=== PATIENT | male | born 1960 | race Hispanic/Latino ===

== ENCOUNTER 2024-04-20 16:42 | Emergency (ER) | payer MEDICARE ==
[2024-04-20] MEDS ORDERED: Acetaminophen 325 MG TAB ONE (17:24)
[2024-04-20 17:30] LABS: Bilirubin Neg (Negative); Blood, Urine 50 (Negative); Clarity Clear (Clear); Glucose, Urine (Dipstick) Normal (Negative); Ketone, Urine Negative (Negative); Leukocyte 100 (Negative); Nitrite Negative (Negative); Protein, Urine (Dipstick) Negative (Neg-Trace); Specific Gravity, Urine 1.005 (1.005-1.030); Urobilinogen Normal mg/dL (Less than 2); pH, Urine 6.5 (5.0-9.0)
[2024-04-20 17:34] LABS: #Basophils 0.02 10x3/uL (0.0-0.2); #Eosinphils 0.14 10x3/uL (0.0-0.5); #Monocytes 0.74 10x3/uL (0.0-1.1); #Neutrophils 7.49 10x3/uL (1.5-8.4); %Basophils 0.2 % (0.0-2.0); %Eosinophils 1.5 % (0.0-6.0); %Lymphocytes 9.5 % (18.0-47.0); %Neutrophils 80.6 % (40.0-75.0); Hematocrit 41.6 % (38.8-50.0); Hemoglobin 14.7 g/dL (13.5-17.5); Mean Corpuscular HGB CONC 35.3 g/dL (32.0-36.0); Mean Corpuscular Hemoglobin 31.7 pg (27.0-33.0); Mean Corpuscular Volume 89.8 fL (81.2-95.1); Mean Platelet Volume 11.1 fL (7.4-10.4); Platelet Count 195 10x3/uL (150-450); RBC Distribution Width 13.5 % (11.5-14.5); Red Blood Cell (RBC) Count 4.63 10x6/uL (4.32-5.72); White Blood Cell (WBC) Count 9.3 10x3/uL (3.5-10.5)
[2024-04-20] MEDS ORDERED: cefTRIAXone (ROCEPHIN) 1 GM VIAL ONE (17:37)
[2024-04-20] MEDS ORDERED: Ibuprofen 200 MG TAB ONE (17:37)
[2024-04-20 17:48] LABS: ALT (SGPT) 34 U/L (8-55); AST (SGOT) 18 U/L (5-34); Alkaline Phosphatase 52 U/L (40-110); Anion Gap 14 mmol/L (10-20); BUN (Urea Nitrogen) 15 mg/dL (8.4-25.7); Bilirubin, Total 0.7 mg/dL (0.2-1.2); Calc. Creatinine Clearance 0 mL/min (70-130); Calcium 9.2 mg/dL (7.8-10.44); Carbon Dioxide 22 mmol/L (23-31); Chloride 103 mmol/L (98-107); Estimated GFR 72; Glucose 121 mg/dL (80-115); Potassium 3.7 mmol/L (3.5-5.1); Sodium 135 mmol/L (136-145)
[2024-04-20 17:49] LABS: Bacteria/HPF Rare-Few HPF (None Seen); CAUTI Indications for Culture Pelvic or flank pain; Squamous Epithelial 0-3 HPF (0-3)
[2024-04-20 17:51] LABS: Urine Culture Reflex No No
[2024-04-20 17:54] LABS: Troponin I 0.051 ng/mL (< 0.028)
[2024-04-20] MEDS ORDERED: Aspirin Chewable 81 MG TAB ONE (19:17)
== END 2024-04-20 19:33 | disposition left against medical advice (07) ==
LOC: CSHERS 16:42
DX: N39.0 Urinary tract infection, site not specified (principal); N10 Acute pyelonephritis; E86.0 Dehydration; I10 Essential (primary) hypertension; I25.10 Atherosclerotic heart disease of native coronary artery without angina pectoris
CPT/HCPCS: 71045; 80053; 81001; 83605; 84484; 85025; 93005; 96374; 99283; J0696

== ENCOUNTER 2024-09-01 16:08 | Emergency (ER) | payer MEDICARE, OTHER ==
[2024-09-01] MEDS ORDERED: Acetaminophen 325 MG TAB ONE (16:49)
[2024-09-01] MEDS ORDERED: Cyclobenzaprine 10 MG TAB ONE (16:49)
== END 2024-09-01 17:45 | disposition home or self-care (01) ==
LOC: CSHERS 16:08
DX: S16.1XXA Strain of muscle, fascia and tendon at neck level, initial encounter (principal); R51.9 Headache, unspecified; I10 Essential (primary) hypertension; V89.2XXA Person injured in unspecified motor-vehicle accident, traffic, initial encounter
CPT/HCPCS: 70450; 72125